=== PATIENT | female | born 1995 | race Caucasian/White ===

== ENCOUNTER 2020-11-16 22:36 | Emergency (ER) | payer OTHER ==
[~2020-11-16] VITALS: Ht 167.6 cm; Wt 50.8 kg
[2020-11-16 23:16] LABS: BASOPHILS % (AUTO) 1 % (0-1); EOSINOPHILS % (AUTO) 4 % (1-7); LYMPHOCYTES % (AUTO) 34 % (22-44); MEAN CORPUSCULAR HEMOGLOBIN 33.8 pg (27.0-34.8); MEAN PLATELET VOLUME 7.7 fL (7.4-10.4); MONOCYTES % (AUTO) 7 % (2-9); NEUTROPHILS % (AUTO) 54 % (42-75); PLATELET COUNT 269 x10^3/uL (130-400); RED BLOOD COUNT 4.35 x10^6/uL (3.82-5.3); RED CELL DISTRIBUTION WIDTH 12.3 % (9.6-15.2)
[2020-11-16 23:24] LABS: ANION GAP 3 mmol/L (5-15); CALCIUM 9.2 mg/dL (8.5-10.1); CHLORIDE 108 mmol/L (98-107)
[2020-11-16 23:29] LABS: CREATININE 0.65 mg/dL (0.55-1.02)
--- NOTE | 2020-11-17 02:47 | NUR ---
PTR C/O OF VAGINAL BLEEDING SINCE TONIGHT. 2 PADS IN 2 12 HOURS. NADN. VSS. WCTM
[2020-11-17 02:49] VITALS: BP 136/76
== END 2020-11-17 02:51 | disposition home or self-care (01) ==
LOC: ED 23:59
DX: N92.4 Excessive bleeding in the premenopausal period (principal)
CPT/HCPCS: 36415; 76801; 80048; 82040; 84702; 85025; 86901; 99284